=== PATIENT | female | born 1945 | race Hispanic/Latino ===

== ENCOUNTER 2021-03-10 17:10 | Emergency (ER) | payer OTHER, MEDICARE ==
[~2021-03-10] VITALS: Ht 160 cm; Wt 93.9 kg
[2021-03-10 17:11] VITALS: BP 150/77
[2021-03-10 18:01] LABS: BASOPHILS % (AUTO) 0.7 % (0.0-5.0); EOSINOPHILS % (AUTO) 1.7 % (0.0-8.0); HEMATOCRIT 45.3 % (36-48); LYMPHOCYTES % (AUTO) 17.6 % (21.0-51.0); MEAN CORPUSCULAR HEMOGLOBIN 28.7 pg (27.0-33.0); MEAN CORPUSCULAR HGB CONC 31.1 g/dL (32.0-36.0); MEAN CORPUSCULAR VOLUME 92.1 fL (79-99); MONOCYTES % (AUTO) 4.6 % (3.0-13.0); NEUTROPHILS % (AUTO) 75.1 % (40.0-77.0); PLATELET COUNT (AUTO) 278 K/uL (130-400); RED BLOOD CELL COUNT(AUTO) 4.92 MIL/uL (4.00-5.50); RED CELL DISTRIBUTION WIDTH 14.3 % (11.0-15.5); WHITE BLOOD COUNT (AUTO) 10.4 K/uL (4.8-10.8)
[2021-03-10 18:12] LABS: CREATININE 0.8 mg/dL (0.5-1.5); POTASSIUM 3.9 mmol/L (3.5-5.1)
[2021-03-10 18:17] LABS: ALBUMIN 4.1 g/dL (3.5-5.0); BILIRUBIN,TOTAL 0.3 mg/dL (0.2-1.0)
[2021-03-10 19:40] VITALS: BP 114/84
[2021-03-10 20:24] LABS: APPEARANCE,URINE Clear (CLEAR); BILIRUBIN,URINE Negative (NEGATIVE); COLOR,URINE Yellow (YELLOW); GLUCOSE, URINE (UA) Negative (NEGATIVE); KETONES,URINE Negative (NEGATIVE); LEUKOCYTE ESTERASE ,URINE Moderate (NEGATIVE); NITRATE,URINE Negative (NEGATIVE); OCCULT BLOOD,URINE Negative (NEGATIVE); PROTEIN,URINE Trace mg/dL (NEGATIVE)
[2021-03-10 20:34] VITALS: BP 140/68
[2021-03-10 20:39] LABS: BACTERIA,URINE Few /HPF (None Seen); MUCUS,URINE Moderate LPF (None Seen); SQUAMOUS EPITHELIAL CELL,UR Many /HPF (0-2); YEAST,URINE BUDDING Few /HPF (None Seen)
[2021-03-10] MEDS ORDERED: LEVOFLOXACIN 500 MG/D5W 100 ML 100 ML IV ONE (21:00)
[2021-03-10 22:06] VITALS: BP 147/84
[2021-03-10 23:07] VITALS: BP 139/75
[2021-03-10] MEDS ORDERED: CIPR-278 PO (23:09)
[2021-03-10 23:53] VITALS: BP 131/71
[2021-03-12] MEDS ORDERED: FAMOTIDINE 20MG VIAL IV ONE (11:27)
[2021-03-12] MEDS ORDERED: SOLU-MEDROL 125MG VIAL ONE (11:27)
[2021-03-12] MEDS ORDERED: DiphenhydrAMINE HCL 50 MG/ML VIAL ONE (11:28)
== END 2021-03-11 00:03 | disposition home or self-care (01) ==
LOC: EDH 17:10
DX: N30.00 Acute cystitis without hematuria (principal); E78.00 Pure hypercholesterolemia, unspecified; I10 Essential (primary) hypertension; Z88.0 Allergy status to penicillin; Z90.710 Acquired absence of both cervix and uterus; Z90.49 Acquired absence of other specified parts of digestive tract; Z91.018 Allergy to other foods
CPT/HCPCS: 36415; 74176; 80053; 81001; 82550; 83690; 84484; 85025; 87088; 93005; 96365; 99285; J1956; J1200; J2930; J3490

== ENCOUNTER → 2021-06-14 | Outpatient (CLI) | payer OTHER, MEDICARE ==
[~2021-06-14] MED LIST: CIPR-278 PO
== END | disposition home or self-care (01) ==
LOC: SHCH 09:27
PROVIDERS: ATTEND Internal Medicine Cardiovascular Disease
DX: R06.02 Shortness of breath (principal)
CPT/HCPCS: 93306; 93356

== ENCOUNTER → 2023-01-03 | Outpatient (CLI) | payer OTHER, MEDICARE | END | disposition home or self-care (01) | LOC: RAH 09:18 | PROVIDERS: ATTEND Family Medicine | DX: N20.0 Calculus of kidney (principal); R16.0 Hepatomegaly, not elsewhere classified; Z90.49 Acquired absence of other specified parts of digestive tract | CPT/HCPCS: 76700 ==

== ENCOUNTER → 2023-01-17 | Outpatient (CLI) | payer OTHER, MEDICARE ==
[~2023-01-17] MED LIST changes: +IOHEXOL 350 MG/ML 100ML INFUS..BTL IV ONE
== END | disposition home or self-care (01) ==
LOC: RAH 08:33
PROVIDERS: ATTEND Family Medicine
DX: R16.0 Hepatomegaly, not elsewhere classified (principal); R93.2 Abnormal findings on diagnostic imaging of liver and biliary tract; Z90.49 Acquired absence of other specified parts of digestive tract
CPT/HCPCS: 74170; Q9967

== ENCOUNTER 2023-04-01 15:03 | Emergency (ER) | payer OTHER, MEDICARE ==
[~2023-04-01] VITALS: Ht 152.4 cm; Wt 93.0 kg
[~2023-04-01 15:03] MED LIST changes: -IOHEXOL 350 MG/ML 100ML INFUS..BTL IV ONE
[2023-04-01 15:06] VITALS: BP 155/73; PULSE 72; RESP 18; O2SAT 98
[2023-04-01] MEDS ORDERED: IBUPROFEN 600 MG TABLET ONE (16:19)
[2023-04-01] MEDS ORDERED: IBUPROFEN 600 MG TABLET PO ONE (16:30)
[2023-04-01] MEDS ORDERED: IBUP-2076 PO (18:19)
[2023-04-01] MEDS ORDERED: CYCL5TAB PO (18:19)
== END 2023-04-01 18:30 | disposition home or self-care (01) ==
LOC: EDH 15:03
DX: S46.912A Strain of unspecified muscle, fascia and tendon at shoulder and upper arm level, left arm, initial encounter (principal); S39.012A Strain of muscle, fascia and tendon of lower back, initial encounter; E78.00 Pure hypercholesterolemia, unspecified; I10 Essential (primary) hypertension; Z88.0 Allergy status to penicillin; V89.0XXA Person injured in unspecified motor-vehicle accident, nontraffic, initial encounter; Y93.89 Activity, other specified; Y92.89 Other specified places as the place of occurrence of the external cause; Y99.8 Other external cause status
CPT/HCPCS: 72110; 73030

== ENCOUNTER → 2023-05-15 | Outpatient (CLI) | payer OTHER, MEDICARE ==
[~2023-05-15] MED LIST changes: +CYCL5TAB PO; +IBUP-2076 PO
== END | disposition home or self-care (01) ==
LOC: RAH 07:55
PROVIDERS: ATTEND Family Medicine
DX: R16.0 Hepatomegaly, not elsewhere classified (principal); I70.0 Atherosclerosis of aorta; Z90.49 Acquired absence of other specified parts of digestive tract
CPT/HCPCS: 76700

== ENCOUNTER 2024-01-26 13:25 | Inpatient (IN) | payer OTHER, MEDICARE ==
[~2024-01-26] VITALS: Ht 165.1 cm; Wt 96.8 kg
[~2024-01-26 13:25] MED LIST changes: +ACET-2743 PO
[2024-01-26 14:08] LABS: BASOPHILS # (AUTO) 0.07 K/uL (0.00-0.20); BASOPHILS % (AUTO) 0.5 % (0.0-5.0); EOSINOPHILS # (AUTO) 0.13 K/uL (0.00-0.70); EOSINOPHILS % (AUTO) 0.9 % (0.0-8.0); HEMATOCRIT 46.1 % (36-48); IMMATURE GRANULOCYTE ABSOLUTE 0.09 K/uL (0-1); LYMPHOCYTES # (AUTO) 2.3 K/uL (1.0-4.8); LYMPHOCYTES % (AUTO) 16.4 % (21.0-51.0); MEAN CORPUSCULAR HEMOGLOBIN 29.2 pg (27.0-33.0); MEAN CORPUSCULAR HGB CONC 32.5 g/dL (32.0-36.0); MEAN CORPUSCULAR VOLUME 89.7 fL (79-99); MONOCYTES # (AUTO) 0.6 K/uL (0.1-1.0); NEUTROPHILS % (AUTO) 77.6 % (40.0-77.0); PLATELET COUNT (AUTO) 301 K/uL (130-400); RED BLOOD CELL COUNT(AUTO) 5.14 MIL/uL (4.00-5.50); RED CELL DISTRIBUTION WIDTH 13.2 % (11.0-15.5); WHITE BLOOD COUNT (AUTO) 14.1 K/uL (4.8-10.8)
[2024-01-26 14:09] LABS: APPEARANCE,URINE CLEAR (CLEAR); BILIRUBIN,URINE NEGATIVE (NEGATIVE); COLOR,URINE YELLOW (YELLOW); GLUCOSE, URINE (UA) >=1000 mg/dL (NEGATIVE); KETONES,URINE 5 mg/dL (NEGATIVE); LEUKOCYTE ESTERASE ,URINE SMALL Leu/uL (NEGATIVE); NITRATE,URINE NEGATIVE (NEGATIVE); OCCULT BLOOD,URINE SMALL (NEGATIVE); PROTEIN,URINE TRACE mg/dL (NEGATIVE); UROBILINOGEN,URINE 0.2 mg/dL (0.2-1.0)
[2024-01-26 14:23] LABS: ADD UA MICROSCOPIC YES
[2024-01-26 14:29] LABS: ALBUMIN 4.1 g/dL (3.5-5.0); BILIRUBIN,TOTAL 0.6 mg/dL (0.2-1.0); CREATININE 1.2 mg/dL (0.5-1.0); POTASSIUM 3.7 mmol/L (3.5-5.1); TOTAL PROTEIN, SERUM 9.4 g/dL (6.0-8.3)
[2024-01-26 14:38] LABS: BACTERIA,URINE Few /HPF (None Seen); SQUAMOUS EPITHELIAL CELL,UR Rare /HPF (0-2); WBC,URINE 0-1 /HPF (0-1); YEAST,URINE BUDDING Few /HPF (None Seen); YEAST,URINE HYPHAE Few /HPF (None Seen)
[2024-01-26] MEDS: 0.9%NACL 1000ML 1,000 ML IV ONE ×2 (14:47→15:00)
[2024-01-26] MEDS: INSULIN HUMULIN R 100 UNIT/ML 3ML IV ONE (14:48)
[2024-01-26 15:15] LABS: ABG BASE EXCESS -3.1 mmol/L (-2.0-3.0); ABG HCO3 20.5 mmol/L (21.0-28.0); ABG OXYGEN SATURATION 95.7 % (95.0-99.0); ABG PCO2 33 mmHg (32-45); ABG PH 7.414 (7.35-7.450); PO2, ARTERIAL BG 77.1 mmHg (83.0-108.0); VENT MODE, BG RA (ROOM AIR)
[2024-01-26] MEDS: LEVOFLOXACIN 750 MG/D5W 150ML BAG IV ONE (15:39)
[2024-01-26] MEDS ORDERED: ONDANSETRON 4MG INJ IVP PRN (17:00)
[2024-01-26] MEDS ORDERED: DEXTROSE 50%-WATER 50 ML DISP.SYRIN IV PRN (17:00)
[2024-01-26] MEDS ORDERED: POTASSIUM CHLORIDE 20MEQ/100ML 100 ML IV PRN ×2 (17:00)
[2024-01-26] MEDS ORDERED: GLUCAGON 1MG KIT 1 MG ML IM PRN (17:00)
[2024-01-26] MEDS ORDERED: CYCLOBENZAPRINE HCL 10 MG TABLET PO PRN (17:00)
[2024-01-26] MEDS ORDERED: POTASSIUM CHLORIDE 10% ELIXIR 20 MEQ/15 ML UDCUP PO PRN (17:00)
[2024-01-26 18:34] LABS: SARS-CoV-2, RNA, NAAT NEGATIVE SARS CoV-2 (NEGATIVE)
[2024-01-26 18:40] LABS: INFLUENZA TYPE A Negative For Type A (NEGATIVE); INFLUENZA TYPE B Negative For Type B (NEGATIVE)
[2024-01-26 19:24] LABS: ABG OXYGEN SATURATION 74.9 % (95.0-99.0); BASE EXCESS,VENOUS BLOOD GAS -1.2 (-2.0-3.0); DEVICE COMMENT RN MAYRA IV; HCO3,VENOUS BLOOD GAS 23.9 (21.0-28.0); PCO2,VENOUS BLOOD GAS 42 (32-45); PH,VENOUS BLOOD GAS 7.379 (7.350-7.450); VENT MODE, BG RA (ROOM AIR)
[2024-01-26] MEDS: HEPARIN 5,000 UNIT VIAL SQ SCH (20:38)
[2024-01-26] MEDS: INSULIN HUMULIN R 100 UNIT/ML 3ML SQ SCH (20:50)
[2024-01-26] MEDS ORDERED: IOHEXOL-350 75 ML VIAL IV ONE (21:04)
[2024-01-26 21:48] VITALS: BP 152/83; PULSE 83; RESP 16
[2024-01-26 22:00] VITALS: O2SAT 100
[2024-01-26] MEDS ORDERED: CORTSOL OT (23:37)
[2024-01-26] MEDS ORDERED: Eye Drops OP (23:37)
[2024-01-26] MEDS ORDERED: AEC81 PO (23:37)
[2024-01-26] MEDS ORDERED: AMLO-258 PO (23:37)
[2024-01-26] MEDS ORDERED: SPIR50TA5 PO (23:37)
[2024-01-26] MEDS ORDERED: CELE-146 PO (23:37)
[2024-01-26] MEDS ORDERED: [UNRECOGNIZED DRUG - OTHER] PO (23:37)
[2024-01-26] MEDS ORDERED: [UNRECOGNIZED DRUG - OTHER] TP (23:37)
[2024-01-26] MEDS ORDERED: DICL20GE TP (23:37)
[2024-01-27] VITALS (7 sets, daily range): BP systolic 120–157; BP diastolic 56–86; PULSE 64–86; RESP 16–20; O2SAT 97–99
[2024-01-27] MEDS: ACETAMINOPHEN 500 MG TABLET PO PRN (04:09)
[2024-01-27] MEDS: 0.9%NACL 1000ML 1,000 ML IV ONE (04:39)
[2024-01-27 05:15] LABS: BASOPHILS # (AUTO) 0.05 K/uL (0.00-0.20); BASOPHILS % (AUTO) 0.5 % (0.0-5.0); EOSINOPHILS # (AUTO) 0.22 K/uL (0.00-0.70); HEMATOCRIT 40.9 % (36-48); IMMATURE GRANULOCYTE ABSOLUTE 0.05 K/uL (0-1); LYMPHOCYTES # (AUTO) 1.9 K/uL (1.0-4.8); LYMPHOCYTES % (AUTO) 17.5 % (21.0-51.0); MEAN CORPUSCULAR HEMOGLOBIN 29.9 pg (27.0-33.0); MEAN CORPUSCULAR HGB CONC 32.3 g/dL (32.0-36.0); MEAN CORPUSCULAR VOLUME 92.5 fL (79-99); MONOCYTES # (AUTO) 0.5 K/uL (0.1-1.0); MONOCYTES % (AUTO) 4.8 % (3.0-13.0); NEUTROPHILS # (AUTO) 8.2 K/uL (1.8-7.7); NEUTROPHILS % (AUTO) 74.7 % (40.0-77.0); PLATELET COUNT (AUTO) 250 K/uL (130-400); RED BLOOD CELL COUNT(AUTO) 4.42 MIL/uL (4.00-5.50); RED CELL DISTRIBUTION WIDTH 13.2 % (11.0-15.5)
[2024-01-27 05:33] LABS: CREATININE 0.7 mg/dL (0.5-1.0); POTASSIUM 3.6 mmol/L (3.5-5.1)
[2024-01-27 05:34] LABS: ALBUMIN 3.1 g/dL (3.5-5.0); BILIRUBIN,TOTAL 0.6 mg/dL (0.2-1.0); TOTAL PROTEIN, SERUM 7.4 g/dL (6.0-8.3)
[2024-01-27 06:10] LABS: HEMOGLOBIN A1C 8.5 % (4.0-6.0)
[2024-01-27] MEDS: POLYETHYLENE GLYCOL 3350 17 GM POWD.PACK PO SCH (08:47)
[2024-01-27] MEDS: AMLODIPINE 5 MG TAB PO SCH (08:47)
[2024-01-27] MEDS: CELECOXIB 100 MG CAP PO SCH (08:47)
[2024-01-27] MEDS: INSULIN GLARGINE 100 UNITS/ML 10 ML VIAL SQ SCH ×2 (08:56→20:53)
[2024-01-27] MEDS: LEVOFLOXACIN 250 MG/D5W 50ML 50 ML IVPB SCH (16:30)
[2024-01-28] VITALS (8 sets, daily range): BP systolic 115–143; BP diastolic 53–77; PULSE 63–71; RESP 16–22; O2SAT 99
[2024-01-28] MEDS: KCL 20 MEQ ERTAB PO PRN (02:06)
[2024-01-28 06:01] LABS: CREATININE 0.7 mg/dL (0.5-1.0); POTASSIUM 3.9 mmol/L (3.5-5.1)
[2024-01-28] MEDS: INSULIN NPH 100 UNIT/ML 3ML SQ SCH (13:30)
[2024-01-28] MEDS: FLUCONAZOLE 100 MG TAB PO SCH (15:15)
[2024-01-28] MEDS: ALPRAZOLAM 0.25 MG TABLET PO SCH (15:15)
[2024-01-28] MEDS: LEVOFLOXACIN 750 MG/D5W 150 ML 150 ML IV SCH (15:16)
[2024-01-28] MEDS: INSULIN HUMULIN R 100 UNIT/ML 3ML SQ SCH (16:04)
[2024-01-28] MEDS: ENOXAPARIN SODIUM 40 MG/0.4 ML SYRINGE SQ SCH (16:07)
[2024-01-29 04:00] VITALS: BP 122/53; PULSE 68; RESP 20
[2024-01-29 04:22] LABS: BASOPHILS # (AUTO) 0.05 K/uL (0.00-0.20); BASOPHILS % (AUTO) 0.5 % (0.0-5.0); EOSINOPHILS # (AUTO) 0.37 K/uL (0.00-0.70); EOSINOPHILS % (AUTO) 3.6 % (0.0-8.0); HEMATOCRIT 43.2 % (36-48); IMMATURE GRANULOCYTE ABSOLUTE 0.05 K/uL (0-1); LYMPHOCYTES # (AUTO) 1.7 K/uL (1.0-4.8); LYMPHOCYTES % (AUTO) 16.6 % (21.0-51.0); MEAN CORPUSCULAR HEMOGLOBIN 29.5 pg (27.0-33.0); MEAN CORPUSCULAR HGB CONC 31.7 g/dL (32.0-36.0); MEAN CORPUSCULAR VOLUME 92.9 fL (79-99); MONOCYTES # (AUTO) 0.7 K/uL (0.1-1.0); MONOCYTES % (AUTO) 6.5 % (3.0-13.0); NEUTROPHILS # (AUTO) 7.4 K/uL (1.8-7.7); NEUTROPHILS % (AUTO) 72.3 % (40.0-77.0); PLATELET COUNT (AUTO) 237 K/uL (130-400); RED BLOOD CELL COUNT(AUTO) 4.65 MIL/uL (4.00-5.50); RED CELL DISTRIBUTION WIDTH 13.5 % (11.0-15.5); WHITE BLOOD COUNT (AUTO) 10.3 K/uL (4.8-10.8)
[2024-01-29 04:48] LABS: CREATININE 0.8 mg/dL (0.5-1.0); MAGNESIUM 1.7 mg/dL (1.80-2.40); POTASSIUM 3.7 mmol/L (3.5-5.1)
[2024-01-29] MEDS: MAGNESIUM 2GM PREMIX 50ML 50 ML IV PRN (05:15)
[2024-01-29 08:00] VITALS: BP 126/65; PULSE 65; RESP 20; O2SAT 99
[2024-01-29 12:00] VITALS: BP 116/60; PULSE 65; RESP 16
[2024-01-29 16:00] VITALS: BP 136/63; PULSE 64; RESP 20
[2024-01-29] MEDS: INSULIN HUMULIN R 100 UNIT/ML 3ML SQ SCH (16:14)
[2024-01-29] MEDS ORDERED: INSLAN SQ (16:25)
[2024-01-29] MEDS ORDERED: METF-444 PO (22:09)
[2024-01-29] MEDS ORDERED: GLIM4TAB36 PO (22:09)
[2024-01-29] MEDS ORDERED: LEVO750T68 PO (22:17)
[2024-01-30] MEDS ORDERED: INSULIN GLARGINE 100 UNITS/ML 10 ML VIAL SQ SCH (09:00)
== END 2024-01-29 19:00 | disposition home or self-care (01) | DRG 872 ==
LOC: EDH 13:25 → OBSVTOIN 16:40 → EDHIP 16:40 → 3DH 20:37
PROVIDERS: ADMIT Internal Medicine Critical Care Medicine; ATTEND Internal Medicine Critical Care Medicine
DX: A41.9 Sepsis, unspecified organism (principal); E87.20 Acidosis, unspecified; N17.9 Acute kidney failure, unspecified; N30.00 Acute cystitis without hematuria; E11.22 Type 2 diabetes mellitus with diabetic chronic kidney disease; E11.65 Type 2 diabetes mellitus with hyperglycemia; E78.00 Pure hypercholesterolemia, unspecified; Z20.822 Contact with and (suspected) exposure to COVID-19; I12.9 Hypertensive chronic kidney disease with stage 1 through stage 4 chronic kidney disease, or unspecified chronic kidney disease; E86.0 Dehydration; E87.6 Hypokalemia; E87.8 Other disorders of electrolyte and fluid balance, not elsewhere classified; N18.9 Chronic kidney disease, unspecified; Z79.4 Long term (current) use of insulin; Z82.49 Family history of ischemic heart disease and other diseases of the circulatory system
CPT/HCPCS: 36415; 36600; 71045; 71270; 80048; 80053; 80061; 81001; 82010; 82435; 82803; 82947; 82948; 83036; 83605; 83735; 83880; 84132; 84295; 84484; 85025; 85378; 87040; 87088; 87635; 87804; 93970; 96365; 96366; 96375; G0378; J1644; J1650; J1815; J1956; J3475; Q9967

== ENCOUNTER → 2024-03-29 | Outpatient (CLI) | payer OTHER, MEDICARE ==
[~2024-03-29] MED LIST changes: +AEC81 PO; +AMLO-258 PO; +CELE-146 PO; -CIPR-278 PO; +CORTSOL OT; +DICL20GE TP; +Eye Drops OP; +GADOTERATE MEGLUMINE 10 MMOL/20 ML VIAL IV ONE; +GLIM4TAB36 PO; -IBUP-2076 PO; +INSLAN SQ; +LEVO750T68 PO; +METF-444 PO; +SPIR50TA5 PO; +[UNRECOGNIZED DRUG - OTHER] PO; +[UNRECOGNIZED DRUG - OTHER] TP
== END | disposition home or self-care (01) ==
LOC: RAH 08:46
PROVIDERS: ATTEND Internal Medicine Gastroenterology
DX: N28.1 Cyst of kidney, acquired (principal); R93.2 Abnormal findings on diagnostic imaging of liver and biliary tract; R10.13 Epigastric pain
CPT/HCPCS: 74183; A9575